=== PATIENT | female | born 1980 | race Caucasian/White ===

== ENCOUNTER → 2020-07-22 | Outpatient (CLI) | payer BC, OTHER ==
[~2020-07-22] MED LIST: ADVIL200 M2 PO; EPIPEN 2-P0.3 MG/0.3 IM; HYDROCODONE-AP1 EAC6 PO; IBUPROFEN 600600 M1 PO; MONONESSA1 EACH PO; PNV PO; ZYRTEC10 M5 PO
== END ==
LOC: LAB 13:35
PROVIDERS: ATTEND Nurse Practitioner
DX: U07.1 COVID-19 (principal)

== ENCOUNTER → 2021-01-01 | Outpatient (CLI) | payer BC, OTHER | LOC: RAD 15:57 | PROVIDERS: ATTEND Nurse Practitioner | DX: S61.214A Laceration without foreign body of right ring finger without damage to nail, initial encounter (principal); Z88.8 Allergy status to other drugs, medicaments and biological substances; X58.XXXA Exposure to other specified factors, initial encounter; Y93.89 Activity, other specified; Y92.89 Other specified places as the place of occurrence of the external cause; Y99.8 Other external cause status ==